=== PATIENT | male | born 1990 | race Caucasian/White ===

== ENCOUNTER 2019-01-26 00:18 | Emergency (ER) | payer OTHER ==
[2019-01-26 00:42] VITALS: BP 104/67; PULSE 72; TEMP 97.8; BMI 20.1
[2019-01-26] MEDS ORDERED: KETOROLAC TROMETHAMINE 30 MG/1 ML VIAL IM ONE (01:19)
[2019-01-26] MEDS ORDERED: KETOROLAC TROMETHAMINE 30 MG/1 ML VIAL ONE (01:22)
--- NOTE | 2019-01-26 01:26 | PDOC ---
History of Present Illness - General Chief Complaint: Pain Stated Complaint: BACK/ARM PAIN Time Seen by Provider: 01/26/19 01:08 History Source: Patient Exam Limitations: No Limitations - History of Present Illness Initial Comments: 01/26/19 01:20 HISTORY OF PRESENT ILLNESS: 28-year-old male denies medical history presents emergency department for evaluation of left shoulder pain which has been intermittent over 2 weeks. Patient reports the pain started while he was at rest when it came on Monday has been more intense over that time. Patient reports the pain gets worse with movement of his left shoulder and occasionally has a sharp tingling sensation in his left upper arm. Patient denies any trauma. 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 Pain improves with ASA. No recent travel or sick contacts. PAST MEDICAL HISTORY: Denies past medical history SURGICAL HISTORY: Denies ALLERGIES: No known drug allergies REVIEW OF SYSTEMS General/Constitutional: Denies fever or chills. Denies weakness, weight change. HEENT: Denies change in vision. Denies ear pain or discharge. Denies sore throat. Cardiovascular: Denies chest pain or shortness of breath. Respiratory: Denies cough, wheezing, or hemoptysis. Gastrointestinal: Denies nausea, vomiting, diarrhea or constipation. Denies rectal bleeding. Genitourinary: Denies dysuria, frequency, or change in urination. Musculoskeletal: see HPI Skin and breasts: Denies rash or easy bruising. Neurologic: Denies headache, vertigo, loss of consciousness, or loss of sensation. Psychiatric: Denies depression or anxiety. Endocrine: Denies increased thirst. Denies abnormal weight change. Hematologic/Lymphatic: Denies anemia, easy bleeding, or history of blood clots. Allergic/Immunologic: Denies hives or skin allergy. Denies latex allergy. PHYSICAL EXAM General Appearance: Well-appearing, appropriately dressed. No apparent distress , no intoxication. HEENT: EOMI, PERRLA, normal ENT inspection, normal voice, TMs normal, pharynx normal. No conjunctival pallor. No photophobia, scleral icterus. Neck: Supple. Trachea midline. No tenderness, rigidity, carotid bruit, stridor , lymphadenopathy, or thyromegaly. Respiratory/Chest: Lungs CTAB. No shortness of breath, chest tenderness, respiratory distress, accessory muscle use. No crackles, rales, rhonchi, stridor , wheezing, dullness Cardiovascular: RRR. S1, S2. No JVD, murmur, bradycardia, tachycardia. Vascular Pulses: Radial (R): 2+, Radial (L): 2+ Musculoskeletal/Extremities: Abduction of the left shoulder decreased secondary to pain. No bony tenderness, step-offs or crepitus noted. Point tenderness at the insertion point of the trapezius muscle of the cervical spine. Neurovascular intact. Integumentary: Appropriate color, dry, warm. No cyanosis, erythema, jaundice or rash Neurologic: chain mender II-XII intact. Fully oriented, alert. Appropriate mood/affect. Motor strength 5/5. No appreciable EOM palsy, facial droop or sensory deficit. 01/26/19 01:26 Past History - Past Medical History Allergies/Adverse Reactions: Allergies Allergy/AdvReac Type Severity Reaction Status Date / Time No Known Allergies Allergy Verified 01/26/19 00:29 Home Medications: Ambulatory Orders Methylprednisolone [Medrol Dose Collins] 4 mg PO ASDIR #21 tablet 01/26/19 COPD: No - Suicide/Smoking/Psychosocial Hx Smoking History: Never smoked *Physical Exam - Vital Signs Last Vital Signs Temp Pulse Resp BP Pulse Ox 97.8 F 72 18 104/67 98 01/26/19 00:27 01/26/19 00:27 01/26/19 00:27 01/26/19 00:27 01/26/19 00:27 Medical Decision Making - Medical Decision Making 01/26/19 01:21 A/P: 28-year-old male with intermittent left upper extremity pain and weakness Point tenderness in the trapezius muscle insertion point at the cervical spine Decreased abduction of the left shoulder secondary to pain Chain Mender strength 5/5 bilaterally Full sensation present Pain pattern is consistent with radiculopathy. Toradol 30 mg IM now Discharge home to follow up with primary doctor. *DC/Admit/Observation/Transfer Diagnosis at time of Disposition: Radiculopathy affecting upper extremity - Discharge Dispostion Disposition: HOME Condition at time of disposition: Stable Decision to Admit order: No - Prescriptions Prescriptions: Methylprednisolone [Medrol Dose Collins] 4 mg PO ASDIR #21 tablet - Referrals Referrals: Jon Sanderson MD [Primary Care Provider] - - Patient Instructions Additional Instructions: Take Tylenol or Naprosyn as needed for pain. Follow spring setter's instructions for appropriate dosage. Take Medrol Dosepak as instructed. Rest. Make an appointment to primary doctor for reevaluation if symptoms continue. Return to the emergency department for any new or worsening symptoms. Thank you very much for choosing us to provide your emergent health care needs. - Post Discharge Activity
== END 2019-01-26 01:45 | disposition home or self-care (01) ==
LOC: JER 00:18
PROC: 3E0233Z Introduction of Anti-inflammatory into Muscle, Percutaneous Approach (ICD-10-PCS; principal; 2019-01-26)
DX: M54.12 Radiculopathy, cervical region (principal)
CPT/HCPCS: 96372; 99281-25

== ENCOUNTER 2021-02-02 18:11 | Emergency (ER) | payer SELFPAY ==
[2021-02-02 18:18] VITALS: BMI 19.3
[2021-02-02] MEDS ORDERED: ACETAMINOPHEN 1000 MG/100 ML VIAL (NON FORMULARY) IVPB ONE (19:03)
[2021-02-02] MEDS ORDERED: SODIUM CHLORIDE 0.9% 500 ML INFUS.BAG IV ONE (19:03)
[2021-02-02] MEDS ORDERED: METOCLOPRAMIDE HCL INJECTION 10 MG/2 ML VIAL IVPB ONE (19:03)
[2021-02-02] MEDS ORDERED: METOCLOPRAMIDE HCL INJECTION 10 MG/2 ML VIAL ONE (19:16)
[2021-02-02] MEDS ORDERED: ACETAMINOPHEN INJECTION 100 ML IVPB ONE (19:16)
[2021-02-02 19:20] LABS: BASO % 0.6 % (0-2.0); EOS % 1.7 % (0-4.5); HEMATOCRIT 43.5 % (35.4-49); HEMOGLOBIN 14.6 GM/dL (11.7-16.9); LYMPH % 27.9 % (8-40); MCH 29.5 pg (25.7-33.7); MCHC 33.5 g/dl (32.0-35.9); MEAN CELL VOLUME 88.3 fl (80-96); MEAN PLT VOLUME 11.8 fl (7.5-11.1); NEUT % 58.8 % (42.8-82.8); PLATELET COUNT 104 K/MM3 (134-434); RBC 4.93 M/mm3 (4.00-5.60); RDW 13.2 % (11.9-15.9); WHITE BLOOD COUNT 5.2 K/mm3 (4.0-10.0)
[2021-02-02 19:38] LABS: CHLORIDE 108 mmol/L (98-107); SODIUM 139 mmol/L (136-145)
[2021-02-02 19:40] LABS: CALCIUM 9.2 mg/dL (8.5-10.1)
[2021-02-02 19:41] LABS: ALBUMIN 4.1 g/dl (3.4-5.0); ANION GAP 5 MMOL/L (8-16); BLOOD UREA NITROGEN 7.8 mg/dL (7-18); CO2 25 mmol/L (21-32); GLUCOSE,RANDOM 84 mg/dL (74-106); MAGNESIUM 2.2 mg/dL (1.8-2.4)
[2021-02-02 19:44] LABS: CREATININE 0.8 mg/dL (0.55-1.3); SGOT/AST 16 U/L (15-37); SGPT/ALT 14 U/L (13-61)
[2021-02-02 19:45] LABS: BILIRUBIN,TOTAL 0.8 mg/dL (0.2-1); TOT PROT 7.3 g/dl (6.4-8.2)
[2021-02-02 19:46] LABS: ALK PHOS 68 U/L (45-117)
[2021-02-02 22:09] VITALS: BP 112/75; PULSE 82; TEMP 98
== END 2021-02-02 22:20 | disposition home or self-care (01) ==
LOC: JER 18:11
PROC: 3E0333Z Introduction of Anti-inflammatory into Peripheral Vein, Percutaneous Approach (ICD-10-PCS; principal; 2021-02-02)
PROC: 3E033GC Introduction of Other Therapeutic Substance into Peripheral Vein, Percutaneous Approach (ICD-10-PCS; 2021-02-02)
PROC: 3E033GC Introduction of Other Therapeutic Substance into Peripheral Vein, Percutaneous Approach (ICD-10-PCS; 2021-02-02)
DX: H53.8 Other visual disturbances (principal); R51.9 Headache, unspecified
CPT/HCPCS: 36415; 70450-TC; 80053; 82550; 82962; 83735; 84484; 85025; 93005; 93010; 99285-25; J0131